=== PATIENT | female | born 1950 | race Caucasian/White ===

== ENCOUNTER 2018-03-13 11:46 | Emergency (ER) | payer OTHER, BC ==
[~2018-03-13] VITALS: Ht 165.1 cm; Wt 81.7 kg
[2018-03-13 13:19] VITALS: BP 124/84
== END 2018-03-13 13:20 | disposition home or self-care (01) ==
LOC: ER 11:46
DX: S61.211A Laceration without foreign body of left index finger without damage to nail, initial encounter (principal); S61.213A Laceration without foreign body of left middle finger without damage to nail, initial encounter; Z88.0 Allergy status to penicillin; Z88.8 Allergy status to other drugs, medicaments and biological substances; Z90.49 Acquired absence of other specified parts of digestive tract; W26.0XXA Contact with knife, initial encounter; Y92.89 Other specified places as the place of occurrence of the external cause; Y93.89 Activity, other specified; Y99.8 Other external cause status